=== PATIENT | male | born 1950 | race Caucasian/White ===

== ENCOUNTER 2018-06-12 11:00 | Emergency (ER) | payer OTHER ==
[~2018-06-12] VITALS: Ht 172.7 cm; Wt 123.9 kg
[~2018-06-12 11:00] MED LIST: ATORVASTATIN CA10 MG PO; CIPRO500 MG PO; FLOMAX0.4 MG PO; LO-DOSE ASPIRIN81 M1 PO; MULTIVITAMIN1 EAC2 PO; PERCOCET 5/31 TABLET PO; ZOFRAN4 MG PO
[2018-06-12 12:27] LABS: BASOPHIL (%) 0.4 % (0-1); BASOPHIL COUNT 0.1 K/uL (0-0.1); EOSINOPHIL (%) 0.9 % (0-5); EOSINOPHIL COUNT 0.1 K/uL (0-0.3); HEMATOCRIT 46.1 % (38.0-50.0); HEMOGLOBIN 15.5 G/DL (12.5-16.6); IMMATURE GRANULOCYTE (%) 0.4 % (0.0-0.7); LYMPHOCYTE COUNT 2.2 K/uL (1.0-2.8); MCH 30.9 PG (29.0-34.0); MCHC 33.6 G/DL (30.0-36.0); MONOCYTE COUNT 1.5 K/uL (0-0.8); NEUTROPHIL (%) 71.3 % (45-76); NEUTROPHIL COUNT 9.9 K/uL (1.8-6.4); PLATELET COUNT 256 K/uL (156-360); RBC DIS.WIDTH-CV 13.9 % (11.8-14.6); RBC DIS.WIDTH-SD 46.9 % (39-53); RED BLOOD COUNT 5.01 M/uL (4.00-5.50); WHITE BLOOD COUNT 13.9 K/uL (4.1-10.2)
[2018-06-12 12:36] LABS: ALBUMIN 4.1 g/dL (3.2-4.8)
[2018-06-12 12:37] LABS: CHLORIDE 104 mEq/L (99-109); SODIUM 137 mEq/L (136-147)
[2018-06-12 12:39] LABS: GLUCOSE 121 mg/dL (70-99); TOTAL PROTEIN 8.7 g/dL (6.4-8.3)
[2018-06-12 12:41] LABS: TOTAL BILIRUBIN 1.2 mg/dL (0.0-1.0)
[2018-06-12 12:42] LABS: ALKALINE PHOSPHATASE 86 IU/L (3-129)
[2018-06-12 12:43] LABS: CREATININE 1.7 mg/dL (0.6-1.3); GFR ESTIMATE (CALCULATED) 43 mL/min/ (58.99-99999)
[2018-06-12 12:44] LABS: AST (GOT) 29 IU/L (2-34); UREA NITROGEN (BUN) 22 mg/dL (9-23)
[2018-06-12 12:45] LABS: ALT (GPT) 35 IU/L (3-49)
[2018-06-12 12:46] LABS: LIPASE 5 U/L (1.0-51.0)
[2018-06-12 13:36] LABS: APPEARANCE CLEAR ((CLEAR)); BILIRUBIN NEGATIVE; BLOOD NEGATIVE; COLOR YELLOW ((YELLOW)); GLUCOSE (STRIP) NEGATIVE; KETONES NEGATIVE; LEUKOCYTES NEGATIVE; NITRITE NEGATIVE; PROTEIN (STRIP) NEGATIVE; SPECIFIC GRAVITY 1.019 (1.000-1.030); UCUL ADDED? NO
[2018-06-12] MEDS ORDERED: NORCO 5/3251 TABLET PO (14:05)
[2018-06-12] MEDS ORDERED: ZOFRAN ODT4 MG PO (14:05)
[2018-06-12] MEDS ORDERED: NAPROSYN500 MG PO (14:05)
[2018-06-12 14:45] VITALS: BP 136/77
== END 2018-06-12 14:49 | disposition home or self-care (01) ==
LOC: EME 11:00
PROVIDERS: Nurse Practitioner Family
DX: N13.2 Hydronephrosis with renal and ureteral calculous obstruction (principal); N17.9 Acute kidney failure, unspecified; E86.0 Dehydration; E78.5 Hyperlipidemia, unspecified; Z87.442 Personal history of urinary calculi; Z79.82 Long term (current) use of aspirin; Z88.0 Allergy status to penicillin
CPT/HCPCS: 74177; 80053; 81003; 83605; 83690; 85025; 93005; 99281; 99285; J1885; J2405; J7030